=== PATIENT | male | born 1980 | race African-American/Black ===

== ENCOUNTER 2021-09-01 19:24 | Emergency (ER) | payer OTHER ==
[2021-09-01 20:02] VITALS: BP 151/77; PULSE 86; BMI 29.3
[2021-09-01 21:15] VITALS: TEMP 97.9
== END 2021-09-01 21:23 | disposition left against medical advice (07) ==
LOC: JER 19:24
DX: E16.2 Hypoglycemia, unspecified (principal)
CPT/HCPCS: 82962; 99283-25

== ENCOUNTER 2022-04-20 21:24 | Emergency (ER) | payer OTHER ==
[2022-04-20 21:31] VITALS: BP 137/81; PULSE 82; RESP 18; TEMP 97; BMI 29.6
[2022-04-21] MEDS ORDERED: ACETAMINOPHEN 325 MG TABLET (FP) PO ONE (00:24)
[2022-04-21] MEDS ORDERED: METHOCARBAMOL 500 MG TABLET PO ONE (00:24)
[2022-04-21] MEDS ORDERED: METHOCARBAMOL 500 MG TABLET ONE (00:26)
[2022-04-21] MEDS ORDERED: ACETAMINOPHEN 325 MG TABLET (FP) ONE (00:27)
[2022-04-21] MEDS ORDERED: BACITRACIN 15 GM TUBE TOPICAL OINTMENT ONE (00:29)
[2022-04-21] MEDS ORDERED: IBUPROFEN 400 MG TABLET (FP) PO ONE ×2 (04:21→04:33)
== END 2022-04-21 04:38 | disposition home or self-care (01) ==
LOC: JERFT 21:24 → JER 21:24
DX: M79.10 Myalgia, unspecified site (principal); V19.9XXA Pedal cyclist (driver) (passenger) injured in unspecified traffic accident, initial encounter; Y92.9 Unspecified place or not applicable
CPT/HCPCS: 70450-TC; 71250-TC; 72125-TC; 72170-TC-FY; 73560-TC-RT-FY; 73590-TC-RT-FY; 73610-TC-RT-FY; 76604; 76705-TC; 93308; 99285-25

== ENCOUNTER 2024-03-10 18:25 | Emergency (ER) | payer OTHER ==
[2024-03-10 18:33] VITALS: BP 159/83; PULSE 55; RESP 18; TEMP 98.3; BMI 28.6
== END 2024-03-10 21:40 | disposition home or self-care (01) ==
LOC: JER 18:25
DX: S62.646A Nondisplaced fracture of proximal phalanx of right little finger, initial encounter for closed fracture (principal); M54.6 Pain in thoracic spine; M54.2 Cervicalgia; V29.401A Electric (assisted) bicycle driver injured in collision with unspecified motor vehicles in traffic accident, initial encounter; Y92.410 Unspecified street and highway as the place of occurrence of the external cause
CPT/HCPCS: 70450-TC; 72125-TC; 73110-TC-LT-FY; 73110-TC-RT-FY; 73130-TC-LT-FY; 73130-TC-RT-FY; 73560-TC-LT-FY; 73560-TC-RT-FY; 73610-TC-LT-FY; 73610-TC-RT-FY; 73630-TC-LT; 73630-TC-RT-FY; 99284-25